=== PATIENT | female | born 1975 | race Caucasian/White ===

== ENCOUNTER 2020-09-29 13:15 | Emergency (ER) | payer OTHER ==
[~2020-09-29] VITALS: Ht 152.4 cm; Wt 72.7 kg
[2020-09-29] MEDS ORDERED: ASPIRIN ENTERIC COATED 325 MG TABLET.DR. PO ONE (13:30)
--- NOTE | 2020-09-29 13:31 | PHYS DOC ---
Past History Past Medical History: Anxiety, High Cholesterol Adult General Chief Complaint Chief Complaint: OTHER COMPLAINTS HPI HPI Patient is a 45-year-old female who complains of left upper and left lower extremity paresthesias. Reports this is an acute on chronic process, is dealt with this in the past. States she takes a statin daily and whenever she stops taking this consistently she is experience paresthesias in the past. Reports she has not been totally compliant with her statin use daily as prescribed and "I just feel different, I cannot really explain it". States she has been having symptoms for several days of waxing and waning left upper and left lower extremity paresthesias without any change in motor function/strength. Timing of symptoms has been intermittent since onset but for approximately past 24 hours has been constant which worried patient. She took a leftover Xanax which was previously prescribed to her which has provided mild relief as patient admits she has underlying anxiety that is likely contributing to her presenting symptoms today. She has no known CVA or cardiac history, no provocative cardiac testing or neurologic testing performed in outpatient setting. Patient denies any recent fever, sick contact or known COVID-19 exposure, admits mild tension- like headache without any ripping or tearing sensation, no chest pain, no shortness of breath, no abdominal pain, no changes in bladder or bowel function, no saddle anesthesia, no bladder or bowel incontinence. Review of Systems Review of Systems Fourteen body systems of review of systems have been reviewed. See HPI for pertinent positives and negative responses, other boggs all other systems are negative, non-pertinent or non-contributory Allergies Allergies Allergies Coded Allergies Type Severity Reaction Last Updated Verified No Known Drug Allergies 09/29/20 No Physical Exam Physical Exam General: Appears well, non toxic, and comfortable Skin: Warm, dry. Normal for ethnicity. HEENT: Atraumatic. PERRLA. Moist mucous membranes. Neck: Trachea midline. Normal ROM. Respiratory: Normal WOB. CTAB w/o w/r/r. No tachypnea. Cardiovascular: Regular rate and rhythm. Normal peripheral perfusion. No edema. Abdomen: Soft. Non tender. No distension. Back: Normal ROM. Musculoskeletal: No swelling or deformity. Neuro: Alert and oriented x 4. MAEE. GCS 15. Normal FNF. Negative pronator drift. Normal heel to conway. Normal Mayra. CN II-XII intact. Normal muscle strength to all extremities. Diminished sensation to light in sharp touch to left upper and left lower extremities compared to contralateral side. Normal speech. Gait unremarkable Psych: Anxious affect and mood. Current Patient Data Lab Results Laboratory Tests Test 09/29/20 13:32 09/29/20 13:41 White Blood Count 7.9 x10^3/uL (4.0-11.0) Red Blood Count 4.29 x10^6/uL (3.50-5.40) Hemoglobin 13.1 g/dL (12.0-15.5) Hematocrit 39.5 % (36.0-47.0) Mean Corpuscular Volume 92 fL (79-100) Mean Corpuscular Hemoglobin 31 pg (25-35) Mean Corpuscular Hemoglobin Concent 33 g/dL (31-37) Red Cell Distribution Width 13.1 % (11.5-14.5) Platelet Count 314 x10^3/uL (140-400) Neutrophils (%) (Auto) 56 % (31-73) Lymphocytes (%) (Auto) 32 % (24-48) Monocytes (%) (Auto) 9 % (0-9) Eosinophils (%) (Auto) 2 % (0-3) Basophils (%) (Auto) 1 % (0-3) Neutrophils # (Auto) 4.4 x10^3uL (1.8-7.7) Lymphocytes # (Auto) 2.6 x10^3/uL (1.0-4.8) Monocytes # (Auto) 0.7 x10^3/uL (0.0-1.1) Eosinophils # (Auto) 0.2 x10^3/uL (0.0-0.7) Basophils # (Auto) 0.0 x10^3/uL (0.0-0.2) Urine Collection Type Unknown Urine Color Yellow Urine Clarity Clear Urine pH 5.5 Urine Specific Foley 1.010 Urine Protein Neg (NEG-TRACE) Urine Glucose (UA) Neg mg/dL (NEG) Urine Ketones (Stick) Neg mg/dL (NEG) Urine Blood Trace (NEG) Urine Nitrite Neg (NEG) Urine Bilirubin Neg (NEG) Urine Urobilinogen Dipstick 0.2 mg/dL (0.2 mg/dL) Urine Leukocyte Esterase Neg (NEG) Urine RBC Rare /HPF (0-2) Urine WBC Rare /HPF (0-4) Urine Squamous Epithelial Cells Occ /LPF Urine Bacteria Few /HPF (0-FEW) Sodium Level 139 mmol/L (136-145) Potassium Level 3.3 mmol/L (3.5-5.1) Chloride Level 103 mmol/L (98-107) Carbon Dioxide Level 27 mmol/L (21-32) Anion Gap 9 (6-14) Blood Urea Nitrogen 12 mg/dL (7-20) Creatinine 0.8 mg/dL (0.6-1.0) Estimated GFR (Cockcroft-Gault) 76.9 BUN/Creatinine Ratio 15 (6-20) Glucose Level 132 mg/dL (70-99) Calcium Level 9.3 mg/dL (8.5-10.1) Total Bilirubin 0.4 mg/dL (0.2-1.0) Aspartate Amino Transf (AST/SGOT) 22 U/L (15-37) Alanine Aminotransferase (ALT/SGPT) 38 U/L (14-59) Alkaline Phosphatase 78 U/L (46-116) Creatine Kinase 76 U/L (26-192) Troponin I Quantitative < 0.017 ng/mL (0-0.055) Total Protein 7.6 g/dL (6.4-8.2) Albumin 4.1 g/dL (3.4-5.0) Albumin/Globulin Ratio 1.2 (1.0-1.7) Urine Opiates Screen Neg (NEG) Urine Methadone Screen Neg (NEG) Urine Barbiturates Neg (NEG) Urine Phencyclidine Screen Neg (NEG) Urine Amphetamine/Methamphetamine Neg (NEG) Urine Benzodiazepines Screen Neg (NEG) Urine Cocaine Screen Neg (NEG) Urine Cannabinoids Screen Neg (NEG) Urine Ethyl Alcohol Neg (NEG) Bedside Urine HCG, Qualitative hcg negative (Negative) EKG EKG EKG ordered and interpreted by myself at 1341 hrs. as sinus rhythm at 77 bpm, unremarkable intervals, left axis deviation, no acute ischemic findings, no STEMI Radiology/Procedures Radiology/Procedures CLINICAL INDICATION: Left upper and lower extremity numbness COMPARISON: None TECHNIQUE: AP view of the chest FINDINGS: The heart and mediastinum are normal. Lungs are well-expanded and clear. No consolidation, pleural effusion, or pneumothorax. Pulmonary vascularity is normal. Mild S-shaped curvature of the spine. IMPRESSION: No acute cardiopulmonary abnormality. Electronically signed by: Magige Estrada MD (09/29/2020 1:56 PM) [id number] EXAM: CT head without contrast INDICATION: Left upper and lower extremity paresthesias COMPARISON: None TECHNIQUE: Axial CT imaging through the head without intravenous contrast. One or more of the following individualized dose reduction techniques were utilized for this examination: 1. Automated exposure control 2. Adjustment of the mA and/or kV according to patient size 3. Use of iterative reconstruction technique. FINDINGS: Ventricles and sulci are normal. No intracranial hemorrhage, acute infarct, or mass lesion. Skull and scalp are intact. The visualized sinuses and mastoid air cells are clear. Visualized portion of globes and orbits are normal. IMPRESSION: No acute intracranial abnormality. Electronically signed by: Maggie Estrada MD (09/29/2020 1:54 PM) [id number] Heart Score HEART Score for Chest Pain: HEART Score for Chest Pain Response (Comments) Value History Slighlty/Non-Suspicious 0 ECG Normal 0 Age >45 - < 65 1 Risk Factors 1 or 2 Risk Factors 1 Troponin < Normal Limit 0 Total 2 Risk Factors: Risk Factors: DM, Current or recent (<one month) smoker, HTN, HLP, family hi story of CAD, obesity. Risk Scores: Risk Factors: DM, Current or recent (<one month) smoker, HTN, HLP, family history of CAD, obesity. Course & Med Decision Making Course & Med Decision Making Discussed with the patient all findings and diagnostic testing. I discussed most likely diagnosis of paresthesias of unknown origin. This is likely sequelae from anxiety as no obvious emergent and/or surgical pathology found today. Patient agrees presenting symptoms were likely secondary to panic attack and increased home stress as she has had stressful 2020 with mounting home stressors recently. I did disclose this might be an acute presentation of more concerning pathology and so, I stressed need for close outpatient follow-up to review today's ER visit. Strict return precautions were also discussed at length with good understanding by patient. Patient voiced understanding and agreement with the plan. Patient knows to come back for repeat evaluation if concerning signs or symptoms present prior to outpatient follow-up. She reports having follow-up previously scheduled this upcoming Wednesday. Patient hemodynamically stable, ambulatory and well-appearing at time of disposition. [place] Disclaimer Teofilo Disclaimer This electronic medical record was generated, in whole or in part, using a voice recognition dictation system. Departure Departure: Impression: Primary Impression: Paresthesia of left arm and leg Additional Impression: Anxiety Disposition: 01 DC HOME SELF CARE/HOMELESS Condition: STABLE Referrals: RASHMI PEREZ MD (PCP) Patient Instructions: Anxiety and Panic Attacks, Paresthesia Additional Instructions: As discussed prior to ER departure there is no obvious emergent and/or surgical pathology found during your comprehensive ER work-up. We discussed most likely diagnosis of paresthesias that are likely secondary to your underlying anxiety. There is no indication for further diagnostic work-up and/or intervention at this time. You have follow-up with your primary care physician this upcoming Wednesday, please keep this as previously scheduled and discuss ER visit today. If any concerning signs or symptoms present prior to outpatient follow-up please do not hesitate to come back for repeat evaluation. It was a pleasure to take care of you and I wish you the best going forward Problem Qualifiers LINDSAY VARGAS DO Sep 29, 2020 13:31
[2020-09-29 13:53] LABS: BASO % 1 % (0-3); EOS # 0.2 x10^3/uL (0.0-0.7); EOS % 2 % (0-3); HEMATOCRIT 39.5 % (36.0-47.0); HEMOGLOBIN 13.1 g/dL (12.0-15.5); LYMPH # 2.6 x10^3/uL (1.0-4.8); LYMPH % 32 % (24-48); MEAN CORPUSCULAR HEMOGLOBIN 31 pg (25-35); MEAN CORPUSCULAR HGB CONC 33 g/dL (31-37); MEAN CORPUSCULAR VOLUME 92 fL (79-100); MONO # 0.7 x10^3/uL (0.0-1.1); MONO % 9 % (0-9); NEUT # 4.4 x10^3uL (1.8-7.7); NEUT % 56 % (31-73); PLATELET COUNT 314 x10^3/uL (140-400); RED BLOOD COUNT 4.29 x10^6/uL (3.50-5.40); RED CELL DISTRIBUTION WIDTH 13.1 % (11.5-14.5); WHITE BLOOD COUNT 7.9 x10^3/uL (4.0-11.0)
--- NOTE | 2020-09-29 13:57 | RAD ---
EXAM: CT head without contrast INDICATION: Left upper and lower extremity paresthesias COMPARISON: None TECHNIQUE: Axial CT imaging through the head without intravenous contrast. One or more of the following individualized dose reduction techniques were utilized for this examinat ion: 1. Automated exposure control 2. Adjustment of the mA and/or kV according to patient size 3. Use of iterative reconstruction technique. FINDINGS: Ventricles and sulci are normal. No intracranial hemorrhage, acute infarct, or mass lesion. Skull and scalp are intact. The visualized sinuses and mastoid air cells are clear. Visualized portion of glob es and orbits are normal. IMPRESSION: No acute intracranial abnormality. Electronically signed by: Maggie Estrada MD (09/29/2020 1:54 PM) [id number]
--- NOTE | 2020-09-29 13:58 | RAD ---
EXAM: XR CHEST 1V 09/29/2020 1:40 PM CLINICAL INDICATION: Left upper and lower extremity numbness COMPARISON: None TECHNIQUE: AP view of the chest FINDINGS: The heart and mediastinum are normal. Lungs are well-expanded and clear. No consolidatio n, pleural effusion, or pneumothorax. Pulmonary vascularity is normal. Mild S-shaped curvature of th e spine. IMPRESSION: No acute cardiopulmonary abnormality. Electronically signed by: Maggie Estrada MD (09/29/2020 1:56 PM) [id number]
[2020-09-29 14:01] LABS: CALCIUM 9.3 mg/dL (8.5-10.1); CREATININE 0.8 mg/dL (0.6-1.0); GFR 76.9; POTASSIUM 3.3 mmol/L (3.5-5.1)
[2020-09-29 14:03] LABS: BARBITURATES NEG (NEG); BENZODIAZEPINES NEG (NEG); CANNABINOIDS NEG (NEG); COCAINE NEG (NEG); METHADONE NEG (NEG); OPIATES NEG (NEG); PHENCYCLIDINE NEG (NEG)
[2020-09-29 14:05] LABS: BILIRUBIN,URINE NEG (NEG); CLARITY,URINE CLEAR; COLOR,URINE YELLOW; GLUCOSE,URINE NEG (NEG); NITRITE,URINE NEG (NEG); UROBILINOGEN,URINE 0.2 mg/dL (0.2 mg/dL)
[2020-09-29 14:06] LABS: BACTERIA,URINE FEW /HPF (0-FEW); RBC,URINE RARE /HPF (0-2); SQUAMOUS EPITHELIAL CELL,UR OCC /LPF; WBC,URINE RARE /HPF (0-4)
[2020-09-29 14:07] LABS: ALBUMIN 4.1 g/dL (3.4-5.0); ALBUMIN/GLOBULIN RATIO 1.2 (1.0-1.7); TOTAL BILIRUBIN 0.4 mg/dL (0.2-1.0); TOTAL PROTEIN 7.6 g/dL (6.4-8.2)
[2020-09-29 14:08] LABS: AMPHETAMINE/METHAMPHETAMINE NEG (NEG)
[2020-09-29 14:34] VITALS: BP 150/95
--- NOTE | 2020-09-29 16:22 | EKG ---
[address] [address] Test Date: 2020-09-29 Test Time: 13:37:58 Pat Name: VENKAT GRIFFIN Department: Room: Gender: F Water Treatment Operator: : [id number] Requested By: LINDSAY VARGAS Order Number: [id number] Reading MD: Measurements Intervals [place] Rate: 77 P: 27 MD: 126 QRS: -10 QRSD: 90 T: 10 QT: 380 QTc: 432 Interpretive Statements SINUS RHYTHM COMPLEX(ES) WITH ABERRANT INTRAVENTRICULAR CONDUCTION LEFTWARD AXIS ABNORMAL ECG RI6.02 No previous ECG available for comparison
== END 2020-09-29 15:00 | disposition home or self-care (01) ==
LOC: ER 13:15
DX: R20.2 Paresthesia of skin (principal); F41.9 Anxiety disorder, unspecified; E78.00 Pure hypercholesterolemia, unspecified
CPT/HCPCS: 36415; 70450; 71045; 80053; 80307; 81001; 81025; 82550; 84484; 85025; 93005; 99285

== ENCOUNTER → 2021-07-03 | Outpatient (CLI) | payer OTHER ==
--- NOTE | 2021-07-04 16:18 | RAD ---
MG 2D BILAT SCREENING 07/03/2021 9:30 AM INDICATION: Asymptomatic screening mammogram. COMPARISON: 04/29/2021 TECHNIQUE: 2D CC and MLO projections were obtained of each breast. FINDINGS: Breast density: Category B: There are scattered areas of fibroglandular density. Right breast: There are no suspicious microcalcifications, masses or areas of architectural distortio n. Left breast: There are no suspicious microcalcifications, masses or areas of architectural distortion . Bilateral mammogram is compared to prior examinations appears unchanged. IMPRESSION: Negative bilateral mammogram. BI-RADS category: 1; Negative Recommendations: Recommend annual screening mammography in one year. Electronically signed by: Viviane Bynum MD (07/04/2021 4:16 PM) [id number]
== END ==
LOC: MAMMO 08:59
PROVIDERS: ATTEND Family Medicine
DX: Z12.31 Encounter for screening mammogram for malignant neoplasm of breast (principal)
CPT/HCPCS: 77067